=== PATIENT | male | born 1985 | race Two or more races ===

== ENCOUNTER 2025-02-20 14:30 | Outpatient (RCR) | payer MEDICAID, SELFPAY ==
--- NOTE | 2025-01-29 17:46 | PTNOTE_ITS ---
PT OP Initial Eval Patient Information Outpatient Physical Therapy Treatment Date: 01/29/25 Visit Reasons: POST OP RT KNEE Medical Diagnosis: S83.511A M25.561 Treatment Dx #1: Decreased R knee ROM Treatment Dx #2: R knee weakness Start of Care: 01/29/25 Date of Onset: 01/28/25 Smoking Status Smoking Status: Never smoker Initial Assessment Subjective: Pt is 39 yr old male s/p R ACL repair yesterday presents ambulating with knee immobilizer brace and one crutch. He brings the ice machine to learn how to use it. He has bandage and SEAN wrap on that wasn't removed during the evaluation. PMH: none reported Pt goal: to return to baseline mobility and RTS Objective: PROM: Extension: full Flexion: 20 deg limited by bandage Gait: uses crutch in R UE, corrected to the L UE Knee immobilizer brace locked into full extension is on Ankle AROM: full and painfree Assessment: Pt presentation consistent with referring Dx of R ACL repair. Pt requires skilled therapy to meet goals and has good rehab potential. Treatment will follow included ACL protocol. Short Term and Workers Compensation Claims Adjuster Goals 1. Independent with HEP ? 2. Improved knee flexion ROM to 115 deg and full extension ? 3. Improved quad and hamstring strength to 4+/5 ? 4. Improved ambulatory tolerance to community distances with symmetrical ? gait pattern. 5. Pt will squat x15 with equal WB on both LE's Treatment Plan ?1. Manual therapy ? 2. Therex ? 3. Modalities as indicated, moist heat, ice, estim Frequency and Duration: 2x a week for 24 visits. We will need provider's signature on this eval and more authorized visits to continue past 12 visits. Certification Dates: 01/29/25 to 04/29/25 Procedure Charges OP PT Eval Mod Complex 30 minutes: Yes
--- NOTE | 2025-01-30 12:06 | PT.ODAYNRPT ---
PT Outpatient Daily Note OP Daily Note Outpatient Physical Therapy Treatment Date: 01/30/25 Visit Reasons: POST OP RT KNEE Subjective: Same as time of evaluation Objective: See F/S for therex Assessment: Pt able to SLR without the strap with good strength but difficulty activating R quad in supine. Plan: Continue per POC Length of Time (minutes) of Treatment: 30 Minutes Procedure Charges Therapeutic Exercise 30 minutes: Yes
--- NOTE | 2025-02-03 14:31 | PT.ODAYNRPT ---
PT Outpatient Daily Note OP Daily Note Outpatient Physical Therapy Treatment Date: 02/03/25 Visit Reasons: POST OP RT KNEE Subjective: Doing HEP and can lift up LE to do SLR without pain. No pain in R knee today. Objective: See F/S for therex MT: PROM into flexion x5' to 90 deg light overpressure Assessment: Pt able to SLR without the strap with good strength but difficulty activating R quad in supine. Plan: Continue per POC Length of Time (minutes) of Treatment: 30 Minutes Procedure Charges Therapeutic Exercise 30 minutes: Yes
--- NOTE | 2025-02-05 18:33 | PT.ODAYNRPT ---
PT Outpatient Daily Note OP Daily Note Outpatient Physical Therapy Treatment Date: 02/05/25 Visit Reasons: POST OP RT KNEE Subjective: Doing HEP and can lift up LE to do SLR without pain. No pain in R knee today. Objective: See F/S for therex MT: PROM into flexion x5' to 100 deg light overpressure Assessment: Pt able to SLR without the strap with good strength but difficulty activating R quad in supine. He is ambulating with knee brace locked into full extension. Plan: Continue per POC Length of Time (minutes) of Treatment: 30 Minutes Procedure Charges Therapeutic Exercise 30 minutes: Yes
--- NOTE | 2025-02-11 15:26 | PT.ODAYNRPT ---
PT Outpatient Daily Note OP Daily Note Outpatient Physical Therapy Treatment Date: 02/11/25 Visit Reasons: POST OP RT KNEE Subjective: He went to see surgeon yesterday who removed the bandage and unlocked the knee brace. Doing HEP and can lift up LE to do SLR without pain and ambulate without knee buckling. No pain in R knee today. Objective: See F/S for therex Assessment: Pt able to SLR without the strap with good strength but difficulty activating R quad in supine. He is ambulating with knee brace unlocked with good quad control. Improved knee flexion AAROM to 95 deg. Plan: Continue per POC Length of Time (minutes) of Treatment: 30 Minutes Procedure Charges Therapeutic Exercise 30 minutes: Yes
--- NOTE | 2025-02-13 14:44 | PT.ODAYNRPT ---
PT Outpatient Daily Note OP Daily Note Outpatient Physical Therapy Treatment Date: 02/13/25 Visit Reasons: POST OP RT KNEE Subjective: Pt reports R knee is doing well, has not had pain. Objective: Please see flow sheet for ther ex list. Assessment: Pt demonstrates extension lag with SLR, continued use of knee brace for exercise. Plan: Continue with POC. Length of Time (minutes) of Treatment: 30 Minutes Procedure Charges Therapeutic Exercise 30 minutes: Yes
--- NOTE | 2025-02-18 15:30 | PT.ODAYNRPT ---
PT Outpatient Daily Note OP Daily Note Outpatient Physical Therapy Treatment Date: 02/18/25 Visit Reasons: POST OP RT KNEE Subjective: Pt is ambulating without the knee brace. Doing HEP and can lift up LE to do SLR without pain and ambulate without knee buckling. No pain in R knee today. Objective: See F/S for therex Assessment: Pt able to SLR without the strap. He is ambulating with knee brace unlocked with good quad control. Improved knee flexion AAROM to 105 deg. Plan: Continue per POC Length of Time (minutes) of Treatment: 30 Minutes Procedure Charges Therapeutic Exercise 30 minutes: Yes
--- NOTE | 2025-02-20 18:56 | PT.ODAYNRPT ---
PT Outpatient Daily Note OP Daily Note Outpatient Physical Therapy Treatment Date: 02/20/25 Visit Reasons: POST OP RT KNEE Subjective: Pt is ambulating with the knee brace. Doing HEP and can lift up LE to do SLR without pain and ambulate without knee buckling. No pain in R knee today. Objective: See F/S for therex Assessment: Pt able to SLR without the strap. He is ambulating with knee brace unlocked with good quad control. Improved knee flexion AAROM to 120 deg. Plan: Continue per POC Length of Time (minutes) of Treatment: 30 Minutes Procedure Charges Therapeutic Exercise 30 minutes: Yes
== END 2025-02-21 23:59 | disposition home or self-care (01) ==
LOC: CPTX 14:30
PROVIDERS: PCP Nurse Practitioner Family; Referring Provider Nurse Practitioner Family; Visit Provider Nurse Practitioner Family
DX: R53.1 Weakness (principal); S83.511D Sprain of anterior cruciate ligament of right knee, subsequent encounter; X58.XXXD Exposure to other specified factors, subsequent encounter
CPT/HCPCS: 97110; 97162

== ENCOUNTER 2025-03-11 11:00 | Outpatient (RCR) | payer MEDICAID, SELFPAY ==
--- NOTE | 2025-02-24 14:14 | PT.ODAYNRPT ---
PT Outpatient Daily Note OP Daily Note Outpatient Physical Therapy Treatment Date: 02/24/25 Visit Reasons: post op rt knee Subjective: Pt is ambulating with the knee brace 3 miles today without pain. Doing HEP and can lift up LE to do SLR without pain and ambulate without knee buckling. No pain in R knee today. Objective: See F/S for therex Assessment: Pt able to SLR without the strap. He is ambulating with knee brace unlocked with good quad control. Improved knee flexion AAROM to 120 deg. Plan: Continue per POC Length of Time (minutes) of Treatment: 30 Minutes Procedure Charges Therapeutic Exercise 30 minutes: Yes
--- NOTE | 2025-02-26 13:01 | PT.ODAYNRPT ---
PT Outpatient Daily Note OP Daily Note Outpatient Physical Therapy Treatment Date: 02/26/25 Visit Reasons: post op rt knee Subjective: pt reports L knee is doing well, not wearing knee brace to clinic today. Objective: Please see flow sheet for ther ex list. Assessment: Progressing interventions per post op protocol, pt tolerated with no complaints. Plan: Continue with poC. Length of Time (minutes) of Treatment: 30 Minutes Procedure Charges Therapeutic Exercise 30 minutes: Yes
--- NOTE | 2025-03-03 11:53 | PT.ODAYNRPT ---
PT Outpatient Daily Note OP Daily Note Outpatient Physical Therapy Treatment Date: 03/03/25 Visit Reasons: post op rt knee Subjective: Pt is ambulating with the knee brace 4 miles today without pain. Doing HEP and can lift up LE to do SLR without pain and ambulate without knee buckling. No pain in R knee today. Objective: See F/S for therex Assessment: Pt able to SLR without the strap and with very minimal lag. He is ambulating without knee brace. Improved knee flexion AAROM to 120 deg. Plan: Continue per POC Length of Time (minutes) of Treatment: 30 Minutes Procedure Charges Therapeutic Exercise 30 minutes: Yes
--- NOTE | 2025-03-06 11:42 | PT.ODAYNRPT ---
PT Outpatient Daily Note OP Daily Note Outpatient Physical Therapy Treatment Date: 03/06/25 Visit Reasons: post op rt knee Subjective: Pt reports that knee is doing good so far, is walking 3-4 miles a day. Objective: Please see flow sheet for ther ex list. Assessment: Progressing interventions per surgeon post op protocol, pt tolerating well. Plan: Pt has one visit left, PTOR to write [place] to continue with PT services. Length of Time (minutes) of Treatment: 30 Minutes Procedure Charges Therapeutic Exercise 30 minutes: Yes
--- NOTE | 2025-03-11 11:45 | PT.ODS1RPT ---
PT OP Progress/Discharge Note Date of Service: 03/11/25 Progress Note/DC Note Progress Note/Discharge Note: Progress Note Patient Information Visit Reasons: post op rt knee Service Continue Service or Discharge: Continue Service Status Subjective: Pt is ambulating with the knee brace 3-4 miles without pain. Doing HEP and can lift up LE to do SLR without pain and ambulate without knee buckling. No pain in R knee today. Objective: See F/S for therex R knee AROM: Flexion: 120 deg Extension: full Strength: Quads: 4/5 HS: 4/5 Gait: symmetrical without the brace Assessment: Pt has attended 12 Rx sessions with very good progress with therapy goals. Pt able to SLR with very minimal lag and he is ambulating without knee brace. Improved knee flexion AAROM to 120 deg and full extension to meet that goal. Pt would benefit from additional therapy visits to continue strengthening per protocol. Plan: Request additional authorized visits x12 to continue per POC Procedure Charges Therapeutic Exercise 30 minutes: Yes
== END 2025-03-23 23:59 | disposition home or self-care (01) ==
LOC: CPTX 11:00
PROVIDERS: PCP Nurse Practitioner Family; Referring Provider Nurse Practitioner Family; Visit Provider Nurse Practitioner Family
DX: M25.561 Pain in right knee (principal); S83.511D Sprain of anterior cruciate ligament of right knee, subsequent encounter; X58.XXXD Exposure to other specified factors, subsequent encounter; R53.1 Weakness
CPT/HCPCS: 97110

== ENCOUNTER 2025-04-21 15:00 | Outpatient (RCR) | payer MEDICAID, SELFPAY ==
--- NOTE | 2025-03-31 16:00 | PT.ODAYNRPT ---
PT Outpatient Daily Note OP Daily Note Outpatient Physical Therapy Treatment Date: 03/31/25 Visit Reasons: RT KNEE pain Subjective: Pt is ambulating with the knee brace for 1 hr a day without pain. Doing HEP and no pain in R knee today. Objective: See F/S for therex Assessment: Pt can step up 4 step with good quad control and strength and squat with hands on bar to 30% depth with cues to equally WB. Plan: Continue per POC Length of Time (minutes) of Treatment: 30 Minutes Procedure Charges Therapeutic Exercise 30 minutes: Yes
--- NOTE | 2025-04-03 10:37 | PT.ODAYNRPT ---
PT Outpatient Daily Note OP Daily Note Outpatient Physical Therapy Treatment Date: 04/03/25 Visit Reasons: RT KNEE pain Subjective: Pt is ambulating with the knee brace for 1 hr a day without pain. Doing HEP and no pain in R knee today. Objective: See F/S for therex Assessment: Pt can step up 6 step with improving quad control and strength and squat with hands on bar to 30% depth with cues to equally WB. Plan: Continue per POC Length of Time (minutes) of Treatment: 30 Minutes Procedure Charges Therapeutic Exercise 30 minutes: Yes
--- NOTE | 2025-04-08 16:18 | PT.ODAYNRPT ---
PT Outpatient Daily Note OP Daily Note Outpatient Physical Therapy Treatment Date: 04/08/25 Visit Reasons: RT KNEE pain Subjective: Pt reports R knee is doing better shared taht he continues to walk and has been trying to jog. Objective: Please see flow sheet for ther ex list. Assessment: Pt demonstrates poor eccentric quad control with lateral step down. Pt educated to avoid running at this time due to post op time line and we need to continue working on working strength symmetry between L and R LE. Plan: Continue with poC. Length of Time (minutes) of Treatment: 30 Minutes Procedure Charges Therapeutic Exercise 30 minutes: Yes
--- NOTE | 2025-04-10 15:36 | PT.ODAYNRPT ---
PT Outpatient Daily Note OP Daily Note Outpatient Physical Therapy Treatment Date: 04/10/25 Visit Reasons: RT KNEE pain Subjective: Doing HEP and no pain in R knee today. He is ambulating for exercise every day Objective: See F/S for therex Assessment: Pt can step up 6 step with improving quad control and strength and squat without hands on bar to 30% depth with cues to equally WB. Plan: Continue per POC Length of Time (minutes) of Treatment: 30 Minutes Procedure Charges Therapeutic Exercise 30 minutes: Yes
--- NOTE | 2025-04-21 16:03 | PT.ODAYNRPT ---
PT Outpatient Daily Note OP Daily Note Outpatient Physical Therapy Treatment Date: 04/21/25 Visit Reasons: RT KNEE pain Subjective: Pt reports R knee is doing better, has a follow up with surgeon next month. Objective: Please see flow sheet for ther ex list. Assessment: Pt demonstrates poor eccentric quad control with step down exercise, modified step height. Plan: Continue with POC. Length of Time (minutes) of Treatment: 30 Minutes Procedure Charges Therapeutic Exercise 30 minutes: Yes
== END 2025-04-23 23:59 | disposition home or self-care (01) ==
LOC: CPTX 15:00
PROVIDERS: PCP Nurse Practitioner Family; Referring Provider Nurse Practitioner Family; Visit Provider Nurse Practitioner Family
DX: M25.561 Pain in right knee (principal); R53.1 Weakness; S83.511D Sprain of anterior cruciate ligament of right knee, subsequent encounter; X58.XXXD Exposure to other specified factors, subsequent encounter
CPT/HCPCS: 97110